=== PATIENT | female | born 1990 | race Caucasian/White ===

== ENCOUNTER 2017-12-04 14:39 | Emergency (ER) | END 2017-12-04 18:38 | disposition home or self-care (01) ==

== ENCOUNTER 2018-11-28 16:05 | Emergency (ER) | payer MEDICAID, OTHER ==
[~2018-11-28] VITALS: Wt 48.4 kg
[~2018-11-28 16:05] MED LIST: ACET500C5 PO; AMOX1TAB10 PO; BACTDS PO; ERYTOPOI LEFT EYE; LACTINEX PO
[2018-11-28] MEDS ORDERED: LIDOCAINE 1%/EPI (1:100,000) (MDV) 20 ML INJ ONE (18:30)
[2018-11-28] MEDS ORDERED: HYDROCODONE/APAP (5/325) TAB PO ONE (18:30)
[2018-11-28] MEDS ORDERED: LIDOCAINE 1%/EPI (MDV) 50 ML INJ INJ ONE (18:30)
[2018-11-28] MEDS ORDERED: LIDOCAINE 4% CR TOP ONE (18:30)
[2018-11-28] MEDS ORDERED: HYDR-4011 PO (19:52)
[2018-11-28] MEDS ORDERED: CLIN300C10 PO (19:52)
[2018-11-28 20:05] VITALS: BP 125/86; PULSE 87; RESP 16
--- NOTE | 2018-11-28 20:47 | ERD ---
ER Documentation Chief Complaint Chief Complaint 'bug bite' x3d: abscess to chin w pus-like discharge. fever last night HPI 28-year-old female presents with a mass on her mid chin for the past 3 days. States that she got bitten by a mosquito and then the mass formed afterwards. States that it is tender to palpation and painful in general. States that there is been some puslike discharge. In addition she states that last night she had a fever but currently denies any fever. Denies past medical history. Denies allergies. Denies medications. Denies surgeries. Denies alcohol, tobacco, drug use. Up to date on vaccines. ROS All systems reviewed and are negative except as per history of present illness. Medications Home Meds Active Scripts Hydrocodone/Acetaminophen (Wyatt 5-325 Tablet) 1 Each Tablet, 1 TAB PO Q6H PRN for PAIN, #10 TAB Prov:AUSTIN ISLAS 11/28/18 Clindamycin Hcl* (Clindamycin Hcl*) 300 Mg Capsule, 300 MG PO QID for abscess for 7 Days, CAP Prov:AUSTIN ISLAS 11/28/18 Acetaminophen* (Tylophen*) 500 Mg Capsule, 1 CAP PO Q6H PRN for PAIN AND OR ELEVATED TEMP, #30 CAP Prov:JOSE R SHARMA PA-C 12/04/17 Acetaminophen* (Tylophen*) 500 Mg Capsule, 1 CAP PO Q6H PRN for PAIN AND OR ELEVATED TEMP, #15 CAP Prov:CAROLE BELLAMY MD 08/19/16 Lactobacillus Acidophilus* (Lactinex*) 1 Tab Chew, 1 TAB PO BID for 14 Days, TAB Prov:TIFF GUAMAN 07/21/16 Amoxicillin/Potassium Clav (Amox-Clav 875-125 mg Tablet) 875-125 mg Tab, 1 TAB PO BID for 12 Days, TAB Prov:TIFF GUAMAN 07/21/16 Sulfamethoxazole-Trimethoprim* (Bactrim* DS) 800-160 Mg Tab, 1 TAB PO BID for 12 Days, TAB Prov:TIFF GUAMAN 07/21/16 Erythromycin* (Erythromycin* Ophthalmic) 1 Applic Oint, 1 APPLIC LEFT EYE QID for 7 Days Prov:TIFF GUAMAN 07/21/16 Allergies Allergies: Coded Allergies: No Known Drug Allergy (Verified Allergy, Unknown, 12/04/17) PMhx/Soc Medical and Surgical Hx: pt denies Medical Hx History of Surgery: No Anesthesia Reaction: No Hx Neurological Disorder: No Hx Respiratory Disorders: No Hx Cardiac Disorders: No Hx Psychiatric Problems: No Hx Miscellaneous Medical Probl: No Hx Alcohol Use: No Hx Substance Use: No Hx Tobacco Use: No Physical Exam Vitals Vital Signs Date Temp Pulse Resp B/P (MAP) Pulse Ox O2 O2 Flow FiO2 Time Delivery Rate 11/28/18 98.2 87 16 125/86 100 Room Air 20:05 (99) 11/28/18 98.0 98 18 115/75 98 16:15 (88) Physical Exam Const: No acute distress Head: Atraumatic Eyes: Normal Conjunctiva ENT: Normal External Ears, Nose and Mouth. Neck: Full range of motion. No meningismus. Resp: Clear to auscultation bilaterally Cardio: Regular rate and rhythm, no murmurs Skin: approximately 1 cm fluctuant and erythematous mass noted in the middle of the mandible. It is tender to palpation. There is no lymphatic streaking noted. Back: No midline or flank tenderness Ext: No cyanosis, or edema Neur: Awake and alert Psych: Normal Mood and Affect Results 24 hrs Laboratory Tests Test 11/28/18 18:04 POC Beta HCG, Qualitative NEGATIVE Current Medications Medications Dose Sig/Vernon Start Time Status Last (Trade) Ordered Route PRN Stop Time Admin Dose Reason Admin 1 tab ONCE ONCE 11/28/18 DC 11/28/18 Acetaminophen PO 18:30 11/28/18 18:28 / 18:31 Hydrocodone Bitart (Wyatt (5/325)) Lidocaine 1 applic ONCE ONCE 11/28/18 DC 11/28/18 (Lmx 4% Plus) TOP 18:30 11/28/18 18:28 18:31 Lidocaine/ 50 ml ONCE ONCE 11/28/18 DC Epinephrine INJ 18:30 11/28/18 (Xylocaine 18:30 1%/ Epi (Mdv)) Lidocaine/ 20 ml ONCE ONCE 11/28/18 DC Epinephrine INJ 18:30 11/28/18 (Xylocaine 18:31 1%/ Epi (Mdv) 20 ml) Procedures/MDM Abscess Incision and Drainage with irrigation by me: Location: Mid lower mandible Anesthesia: Local 1% Lidocaine with epi Technique: Irrigated. Disrupted loculations w/ instrumentation Packing: None Complications: Neurovascularly intact post procedure 48 hour wound check. Scar minimization instructions given. 28-year-old female presents with a mass on her mid chin for the past 3 days. States that she got bitten by a mosquito and then the mass formed afterwards. States that it is tender to palpation and painful in general. States that there is been some puslike discharge. In addition she states that last night she had a fever but currently denies any fever. Denies past medical history. Denies allergies. Denies medications. Denies surgeries. Denies alcohol, tobacco, drug use. Up to date on vaccines. Presentation was consistent with a an abscess. I explained to the patient that since the abscess was on her face I was not going to make a large incision in order to prevent scarring. Patient understood this and agreed to have the procedure done. A very small approximately 2 mm incision was made and some drainage was noted. Patient was given Rx for clindamycin because she stated she is trying to get . Patient discharged with short course of Wyatt since she is experiencing acute pain in the area of the abscess. Patient advised to follow-up in 2 days for wound check. I have low suspicion for sepsis or any other emergent complications. Patient discharged with strict ER precautions. Patient advised to follow up with PMD. All questions answered at discharge. Departure Diagnosis: Primary Impression: Abscess Condition: Stable Patient Instructions: Abscess, Incision And Drainage Referrals: [facility] YOU HAVE RECEIVED A MEDICAL SCREENING EXAM AND THE RESULTS INDICATE THAT YOU DO NOT HAVE A CONDITION THAT REQUIRES URGENT TREATMENT IN THE EMERGENCY DEPARTMENT. FURTHER EVALUATION AND TREATMENT OF YOUR CONDITION CAN WAIT UNTIL YOU ARE SEEN IN YOUR DOCTORS OFFICE WITHIN THE NEXT 1-2 DAYS. IT IS YOUR RESPONSIBILITY TO MAKE AN APPOINTMENT FOR FOL-UP CARE. IF YOU HAVE A PRIMARY DOCTOR --you should call your primary doctor and schedule an appointment IF YOU DO NOT HAVE A PRIMARY DOCTOR YOU CAN CALL OUR PHYSICIAN REFERRAL HOTLINE AT IF YOU CAN NOT AFFORD TO SEE A PHYSICIAN YOU CAN CHOSE FROM THE FOLLOWING CO [facility] [address] [facility] [address] [facility] [address] [facility] [address] [facility]. [facility] [address] [facility]. [facility] [address] Additional Instructions: Return to this facility in 2 DAYS for a follow-up exam.Return sooner if your condition worsens. AUSTIN ISLAS Nov 28, 2018 20:47
== END 2018-11-28 20:07 | disposition home or self-care (01) ==
LOC: FTE 16:05
DX: L02.01 Cutaneous abscess of face (principal)
CPT/HCPCS: 10060; 81025; Z7502; Z7610